=== PATIENT | male | born 1930 | race Caucasian/White ===

== ENCOUNTER 2016-10-14 02:34 | Inpatient (IN) | payer MEDICARE ==
[~2016-10-14] VITALS: Ht 177.8 cm; Wt 48.5 kg
[2016-10-14 07:20] LABS: HEMOGLOBIN 10.6 gm/dl (14.0-17.5); RED BLOOD COUNT 4.12 M/UL (4.20-5.50); WHITE BLOOD COUNT 10.6 K/UL (4.5-11.0)
[2016-10-14] MEDS ORDERED: LOPRESSOR 25 MG25 MG PO (08:21)
[2016-10-14] MEDS ORDERED: MEGACE400 MG/10 PO (08:22)
[2016-10-14] MEDS ORDERED: ALDACTONE 25MG25 MG PO (08:22)
[2016-10-14] MEDS ORDERED: RESTORIL 30 MG30 MG PO (08:23)
[2016-10-14] MEDS ORDERED: XARELTO15 MG PO (08:23)
[2016-10-14] MEDS ORDERED: FLOMAX 0.4 MG0.4 MG PO (08:24)
[2016-10-14] MEDS ORDERED: LINZESS145 MCG PO (08:24)
[2016-10-14] MEDS ORDERED: ASPIRIN EC81 MG PO (08:25)
[2016-10-14] MEDS ORDERED: LANOXIN TAB0.125 MG PO (08:25)
[2016-10-14] MEDS ORDERED: ATORVASTATIN CA40 MG PO (08:26)
[2016-10-14 10:08] LABS: HEMOGLOBIN 10.1 gm/dl (14.0-17.5); RED BLOOD COUNT 4.05 M/UL (4.20-5.50); WHITE BLOOD COUNT 10.2 K/UL (4.5-11.0)
[2016-10-14 10:10] LABS: BUN/CREATININE RATIO 16 (0-10)
[2016-10-15 13:16] LABS: HEMOGLOBIN 9.8 gm/dl (14.0-17.5); RED BLOOD COUNT 3.85 M/UL (4.20-5.50); WHITE BLOOD COUNT 12.4 K/UL (4.5-11.0)
[2016-10-15 13:29] LABS: BUN/CREATININE RATIO 21 (0-10)
[2016-10-16 04:08] LABS: RED BLOOD COUNT 3.98 M/UL (4.20-5.50); WHITE BLOOD COUNT 11.7 K/UL (4.5-11.0)
[2016-10-16 04:43] LABS: BUN/CREATININE RATIO 17 (0-10)
[2016-10-17 03:53] LABS: HEMOGLOBIN 9.8 gm/dl (14.0-17.5); RED BLOOD COUNT 3.9 M/UL (4.20-5.50)
[2016-10-17 03:58] LABS: WHITE BLOOD COUNT 8.7 K/UL (4.5-11.0)
[2016-10-17 04:14] LABS: BUN/CREATININE RATIO 16 (0-10)
[2016-10-18 04:28] LABS: HEMOGLOBIN 9.7 gm/dl (14.0-17.5); RED BLOOD COUNT 3.85 M/UL (4.20-5.50); WHITE BLOOD COUNT 8.6 K/UL (4.5-11.0)
[2016-10-18 04:43] LABS: BUN/CREATININE RATIO 17 (0-10)
[2016-10-19 07:22] LABS: RED BLOOD COUNT 3.56 M/UL (4.20-5.50)
[2016-10-19 07:27] LABS: WHITE BLOOD COUNT 11.1 K/UL (4.5-11.0)
[2016-10-19 07:38] LABS: BUN/CREATININE RATIO 11 (0-10)
[2016-10-19] MEDS ORDERED: FERROUS SULFAT325 MG PO (13:47)
[2016-10-19] MEDS ORDERED: LEVAQUIN TAB 5500 MG PO (13:48)
[2016-10-19] MEDS ORDERED: ARTIFICIAL TEAR15 M2 OP (13:50)
[2016-10-19] MEDS ORDERED: THERAGRAN-M PR1 EACH PO (13:52)
== END 2016-10-19 14:30 | disposition home or self-care (01) | DRG 167 ==
LOC: CCU 05:59 → MED SURG 4 10-17 18:35
PROVIDERS: Emergency Medicine; Internal Medicine Infectious Disease; Internal Medicine Pulmonary Disease; ADMIT Internal Medicine
PROC: 0B9G8ZX Drainage of Left Upper Lung Lobe, Via Natural or Artificial Opening Endoscopic, Diagnostic (ICD-10-PCS; principal; 2016-10-18 07:30)
DX: J98.4 Other disorders of lung (principal); R04.2 Hemoptysis; E46 Unspecified protein-calorie malnutrition; Z68.1 Body mass index [BMI] 19.9 or less, adult; J47.9 Bronchiectasis, uncomplicated; F17.210 Nicotine dependence, cigarettes, uncomplicated; B96.5 Pseudomonas (aeruginosa) (mallei) (pseudomallei) as the cause of diseases classified elsewhere; D50.9 Iron deficiency anemia, unspecified; Z79.01 Long term (current) use of anticoagulants; E87.6 Hypokalemia; I48.0 Paroxysmal atrial fibrillation; I10 Essential (primary) hypertension; I25.10 Atherosclerotic heart disease of native coronary artery without angina pectoris
CPT/HCPCS: 36415; 71020; 71250; 80048; 80053; 80076; 80202; 82272; 82607; 82728; 82746; 83540; 83550; 83735; 83880; 84443; 84466; 85025; 85027; 85610; 85730; 87015; 87070; 87077; 87102; 87116; 87186; 87205; 94640; 94664; J1756; J2405; J3370; J3420; J7040; J7050; J7070